=== PATIENT | female | born 1950 | race Caucasian/White ===

== ENCOUNTER 2016-10-31 18:10 | Inpatient (IN) | payer MEDICARE, OTHER ==
[~2016-10-31] VITALS: Ht 160 cm; Wt 85.4 kg
[~2016-10-31 18:10] MED LIST: FERR-89 PO; HYDR-3971 PO; HYDR-4031 PO; HYDR25TA PO; INSLAN SQ; INSREG SQ; METF500T PO; OXYC20 PO; PANT40TA25 PO
[2016-10-31] MEDS ORDERED: LORA0.5T2 PO (19:02)
[2016-10-31] MEDS ORDERED: SITA25 PO (19:02)
[2016-10-31] MEDS ORDERED: LORA10TA7 PO (19:02)
[2016-10-31] MEDS ORDERED: GLIP5 PO (19:02)
[2016-10-31 19:16] LABS: GLUCOSE,POINT OF CARE 243 MG/DL (70-110)
[2016-10-31 19:46] LABS: BASOPHILS # (AUTO) 0.01 K/uL (0.00-0.20); BASOPHILS % (AUTO) 0.4 % (0.0-2.0); EOSINOPHILS # (AUTO) 0.21 K/uL (0.00-0.70); EOSINOPHILS % (AUTO) 7.68 % (1.0-6.0); LYMPHOCYTES # (AUTO) 0.8 K/uL (1.0-4.8); LYMPHOCYTES % (AUTO) 31.3 % (22.0-44.0); MEAN CORPUSCULAR HEMOGLOBIN 20.7 pg (26.0-34.0); MEAN CORPUSCULAR HGB CONC 30.6 G/dL (31.0-37.0); MEAN CORPUSCULAR VOLUME 68 fL (80-100); MONOCYTES # (AUTO) 0.3 K/uL (0.1-1.0); MONOCYTES % (AUTO) 9.5 % (2.0-9.0); NEUTROPHILS # (AUTO) 1.4 K/uL (1.8-7.7); NEUTROPHILS % (AUTO) 51.1 % (40.0-70.0); RED BLOOD CELL COUNT(AUTO) 2.63 MIL/uL (4.00-5.20); RED CELL DISTRIBUTION WIDTH 20.6 % (11.5-14.5); WHITE BLOOD COUNT (AUTO) 2.7 K/uL (4.5-11.0)
[2016-10-31 19:54] LABS: ANION GAP 8 mmol/L (8-16); CALCIUM, TOTAL 8.3 mg/dL (8.8-10.5); CARBON DIOXIDE 26 mmol/L (22-29); CHLORIDE 106 mmol/L (98-107); CREATININE 0.88 mg/dL (0.60-1.30); GLOMERULAR FILTR. RATE CALC > 60 mL/min (>60); POTASSIUM 3.7 mmol/L (3.5-5.1); SODIUM SERUM 140 mmol/L (136-145); UREA NITROGEN, BLOOD 10 mg/dL (7-18)
[2016-10-31 19:58] LABS: ALANINE AMINOTRANSFERASE 36 U/L (12-78); ALBUMIN 3.2 g/dL (3.4-5.0); ASPARTATE AMINOTRANSFERASE 43 U/L (15-37); BILIRUBIN,TOTAL 0.4 mg/dL (0.1-1.0); TOTAL PROTEIN, SERUM 6.8 g/dL (6.4-8.2)
[2016-10-31 20:00] LABS: HEMATOCRIT 17.8 % (36-46); HEMOGLOBIN 5.4 g/dL (12.0-16.0)
[2016-10-31 20:06] LABS: PROTHROMBIN TIME 10.8 SEC (9.4-11.6)
[2016-10-31 20:33] LABS: PLATELET COUNT (AUTO) 94 K/uL (150-450)
[2016-10-31 20:34] LABS: RBC MORPHOLOGY COMMENT ABNORMAL RBC MORPH
[2016-10-31] MEDS ORDERED: 0.9% SODIUM CHLORIDE 10 ML SYRINGE IVP PRN (21:15)
[2016-10-31] MEDS ORDERED: ACETAMINOPHEN 325 MG TABLET PO PRN (21:15)
[2016-10-31] MEDS ORDERED: ONDANSETRON HCL 4 MG/2 ML VIAL IVP PRN (21:15)
[2016-10-31] MEDS ORDERED: PANTOPRAZOLE SODIUM 40 MG/VIAL IVP ONE (21:15)
[2016-10-31 21:27] LABS: APPEARANCE,URINE CLEAR (CLEAR); GLUCOSE, URINE (UA) 500 mg/dL (NEGATIVE); KETONES,URINE NEGATIVE (NEGATIVE); LEUKOCYTE ESTERASE ,URINE TRACE (NEGATIVE); OCCULT BLOOD,URINE MODERATE (NEGATIVE); PH,URINE 6.5 (5.0-8.0); PROTEIN,URINE NEGATIVE (NEGATIVE)
[2016-10-31 21:33] LABS: ADD UA MICROSCOPIC YES
[2016-10-31] MEDS ORDERED: HYDROmorphone 2 MG/ML SYRINGE IVP ONE (21:45)
[2016-10-31] MEDS ORDERED: SODIUM CHLORIDE 0.9% 1,000 ML IV ONE (21:45)
[2016-10-31] MEDS ORDERED: POTASSIUM CHL 20 MEQ/0.45% NS 1,000 ML IV ONE (23:30)
[2016-11-01] VITALS (33 sets, daily range): BP systolic 93–157; BP diastolic 41–89
[2016-11-01] MEDS ORDERED: PROPOFOL 1% 20 ML VIAL IVP ONE (00:27)
[2016-11-01] MEDS ORDERED: LIDOCAINE HCL/PF 2% 5 ML SYRINGE IVP ONE (00:27)
[2016-11-01] MEDS ORDERED: SODIUM CHLORIDE 0.9% 250 ML IV ONE ×3 (00:52→15:19)
[2016-11-01] MEDS ORDERED: LACTULOSE 20 GM/30 ML SOLUTION UDCUP PO PRN (01:15)
[2016-11-01] MEDS ORDERED: DEXTROSE 50%-WATER 25 GM/50 ML SYRINGE IVP PRN (01:15)
[2016-11-01] MEDS ORDERED: FUROSEMIDE 20 MG/2 ML VIAL IVP PRN (01:15)
[2016-11-01] MEDS: MORPHINE SULFATE 4 MG/ML SYRINGE IVP PRN ×3 (04:28→20:26)
[2016-11-01] MEDS ORDERED: PNEUMOCOCCAL VACCINE POLYVALENT 0.5 ML VIAL [PPSV23] IM ONE (05:30)
[2016-11-01 06:54] LABS: BASOPHILS # (AUTO) 0.01 K/uL (0.00-0.20); BASOPHILS % (AUTO) 0.4 % (0.0-2.0); EOSINOPHILS # (AUTO) 0.21 K/uL (0.00-0.70); EOSINOPHILS % (AUTO) 7.27 % (1.0-6.0); HEMATOCRIT 21.4 % (36-46); LYMPHOCYTES # (AUTO) 0.9 K/uL (1.0-4.8); LYMPHOCYTES % (AUTO) 31.9 % (22.0-44.0); MEAN CORPUSCULAR HEMOGLOBIN 21.7 pg (26.0-34.0); MEAN CORPUSCULAR HGB CONC 30.3 G/dL (31.0-37.0); MEAN CORPUSCULAR VOLUME 72 fL (80-100); MONOCYTES # (AUTO) 0.3 K/uL (0.1-1.0); MONOCYTES % (AUTO) 8.5 % (2.0-9.0); NEUTROPHILS # (AUTO) 1.5 K/uL (1.8-7.7); NEUTROPHILS % (AUTO) 51.9 % (40.0-70.0); PLATELET COUNT (AUTO) 99 K/uL (150-450); RED BLOOD CELL COUNT(AUTO) 2.98 MIL/uL (4.00-5.20); RED CELL DISTRIBUTION WIDTH 23.8 % (11.5-14.5); WHITE BLOOD COUNT (AUTO) 2.9 K/uL (4.5-11.0)
[2016-11-01 07:06] LABS: HEMOGLOBIN 6.5 g/dL (12.0-16.0)
[2016-11-01 07:11] LABS: ALANINE AMINOTRANSFERASE 34 U/L (12-78); ALBUMIN 3.1 g/dL (3.4-5.0); ANION GAP 8 mmol/L (8-16); ASPARTATE AMINOTRANSFERASE 40 U/L (15-37); BILIRUBIN,TOTAL 0.4 mg/dL (0.1-1.0); CALCIUM, TOTAL 7.9 mg/dL (8.8-10.5); CARBON DIOXIDE 25 mmol/L (22-29); CHLORIDE 106 mmol/L (98-107); CREATININE 0.78 mg/dL (0.60-1.30); GLOMERULAR FILTR. RATE CALC > 60 mL/min (>60); POTASSIUM 3.8 mmol/L (3.5-5.1); SODIUM SERUM 139 mmol/L (136-145); TOTAL PROTEIN, SERUM 6.5 g/dL (6.4-8.2); UREA NITROGEN, BLOOD 9 mg/dL (7-18)
[2016-11-01] MEDS: LORazepam 2 MG/ML VIAL IVP PRN ×2 (07:36→15:41)
[2016-11-01 09:52] LABS: RBC MORPHOLOGY COMMENT ABNORMAL RBC MORPH
[2016-11-01] MEDS ORDERED: SODIUM CHLORIDE 0.9% 1,000 ML IV ONE ×2 (09:57→10:00)
[2016-11-01] MEDS ORDERED: PEG 3350/NA SULF,BICARB,CL/KCL 4000 ML SOLUTION PO ONE (11:30)
[2016-11-01] MEDS: INSULIN ASPART 100 UNITS/ML SQ PRN ×2 (17:57→20:37)
[2016-11-01 22:56] LABS: HEMATOCRIT 30.3 % (36-46); HEMOGLOBIN 9.2 g/dL (12.0-16.0)
[2016-11-02] MEDS: MORPHINE SULFATE 4 MG/ML SYRINGE IVP PRN ×4 (01:26→23:58)
[2016-11-02 04:23] VITALS: BP 111/57
[2016-11-02 07:11] LABS: GLUCOSE,POINT OF CARE 158 MG/DL (70-110)
[2016-11-02 07:19] VITALS: BP 122/64
[2016-11-02] MEDS ORDERED: SODIUM CHLORIDE 0.9% 1,000 ML IV ONE ×2 (10:00→10:45)
[2016-11-02] MEDS ORDERED: MIDAZOLAM HCL 5 MG/ML VIAL ONE (10:20)
[2016-11-02] MEDS ORDERED: FentaNYL CITRATE-PF 100 MCG/2 ML VIAL ONE (10:20)
[2016-11-02 12:04] VITALS: BP 111/81
[2016-11-02] MEDS: INSULIN ASPART 100 UNITS/ML SQ PRN ×3 (12:40→21:12)
[2016-11-02 16:12] VITALS: BP 126/70
[2016-11-02 19:15] VITALS: BP 139/71
[2016-11-02 23:30] VITALS: BP 108/66
[2016-11-03 05:12] VITALS: BP 127/75
[2016-11-03] MEDS: INSULIN ASPART 100 UNITS/ML SQ PRN ×4 (05:55→20:52)
[2016-11-03] MEDS: MORPHINE SULFATE 4 MG/ML SYRINGE IVP PRN ×4 (05:59→22:21)
[2016-11-03 07:27] VITALS: BP 125/84
[2016-11-03 07:59] LABS: BASOPHILS # (AUTO) 0.01 K/uL (0.00-0.20); BASOPHILS % (AUTO) 0.4 % (0.0-2.0); EOSINOPHILS # (AUTO) 0.16 K/uL (0.00-0.70); EOSINOPHILS % (AUTO) 5.73 % (1.0-6.0); HEMATOCRIT 27.5 % (36-46); HEMOGLOBIN 8.6 g/dL (12.0-16.0); LYMPHOCYTES # (AUTO) 0.8 K/uL (1.0-4.8); LYMPHOCYTES % (AUTO) 26.4 % (22.0-44.0); MEAN CORPUSCULAR HEMOGLOBIN 23.4 pg (26.0-34.0); MEAN CORPUSCULAR HGB CONC 31.1 G/dL (31.0-37.0); MEAN CORPUSCULAR VOLUME 75 fL (80-100); MONOCYTES # (AUTO) 0.4 K/uL (0.1-1.0); MONOCYTES % (AUTO) 12.2 % (2.0-9.0); NEUTROPHILS # (AUTO) 1.6 K/uL (1.8-7.7); NEUTROPHILS % (AUTO) 55.3 % (40.0-70.0); PLATELET COUNT (AUTO) 80 K/uL (150-450); RED BLOOD CELL COUNT(AUTO) 3.65 MIL/uL (4.00-5.20); RED CELL DISTRIBUTION WIDTH 23.5 % (11.5-14.5); WHITE BLOOD COUNT (AUTO) 2.9 K/uL (4.5-11.0)
[2016-11-03 08:17] LABS: ANION GAP 5 mmol/L (8-16); CALCIUM, TOTAL 8.3 mg/dL (8.8-10.5); CARBON DIOXIDE 29 mmol/L (22-29); CHLORIDE 103 mmol/L (98-107); CREATININE 0.87 mg/dL (0.60-1.30); GLOMERULAR FILTR. RATE CALC > 60 mL/min (>60); POTASSIUM 4.4 mmol/L (3.5-5.1); SODIUM SERUM 137 mmol/L (136-145); UREA NITROGEN, BLOOD 6 mg/dL (7-18)
[2016-11-03 09:52] LABS: GLUCOSE COMMENT 1 Received Meds; GLUCOSE,POINT OF CARE 309 MG/DL (70-110)
[2016-11-03 11:01] VITALS: BP 127/68
[2016-11-03 11:17] LABS: HEPATITIS Bs ANTIGEN SCREEN P Negative (Negative); HEPATITIS C AB SCREEN <0.1 s/co ratio (0.0-0.9)
[2016-11-03 17:01] VITALS: BP 103/63
[2016-11-03 19:17] VITALS: BP 117/64
[2016-11-03 23:35] VITALS: BP 125/55
[2016-11-04 00:16] LABS: GLUCOSE,POINT OF CARE 254 MG/DL (70-110)
[2016-11-04 00:17] LABS: GLUCOSE COMMENT 1 Received Meds; GLUCOSE,POINT OF CARE 247 MG/DL (70-110)
[2016-11-04 04:09] VITALS: BP 113/57
[2016-11-04] MEDS: MORPHINE SULFATE 4 MG/ML SYRINGE IVP PRN ×3 (04:26→13:06)
[2016-11-04] MEDS: INSULIN ASPART 100 UNITS/ML SQ PRN ×2 (05:45→12:34)
[2016-11-04 08:08] VITALS: BP 108/50
[2016-11-04 11:37] VITALS: BP 138/73
[2016-11-04] MEDS ORDERED: PANT40TA25 PO (15:47)
[2016-11-05 13:37] LABS: GLUCOSE COMMENT 1 Received Meds; GLUCOSE,POINT OF CARE 232 MG/DL (70-110)
[2016-11-05 13:37] LABS: GLUCOSE COMMENT 1 Received Meds; GLUCOSE,POINT OF CARE 292 MG/DL (70-110)
[2016-11-05 13:37] LABS: GLUCOSE COMMENT 1 Received Meds; GLUCOSE,POINT OF CARE 197 MG/DL (70-110)
[2016-11-05 13:38] LABS: GLUCOSE COMMENT 1 Received Meds; GLUCOSE,POINT OF CARE 377 MG/DL (70-110)
[2016-11-05 13:38] LABS: GLUCOSE,POINT OF CARE 260 MG/DL (70-110)
[2016-11-05 13:38] LABS: GLUCOSE COMMENT 1 Received Meds; GLUCOSE,POINT OF CARE 227 MG/DL (70-110)
[2016-11-05 13:38] LABS: GLUCOSE,POINT OF CARE 325 MG/DL (70-110)
[2016-11-05 15:14] LABS: GLUCOSE COMMENT 1 Received Meds; GLUCOSE,POINT OF CARE 272 MG/DL (70-110)
== END 2016-11-04 16:10 | disposition home or self-care (01) | DRG 378 ==
LOC: EMS 18:11 → 5N 23:30 → 5S 11-04 04:56
PROVIDERS: ADMIT Internal Medicine; ATTEND Internal Medicine
PROC: 30233N1 Transfusion of Nonautologous Red Blood Cells into Peripheral Vein, Percutaneous Approach (ICD-10-PCS; 2016-11-01)
PROC: 0DB68ZX Excision of Stomach, Via Natural or Artificial Opening Endoscopic, Diagnostic (ICD-10-PCS; principal; 2016-11-01 11:00)
PROC: 0DJD8ZZ Inspection of Lower Intestinal Tract, Via Natural or Artificial Opening Endoscopic (ICD-10-PCS; 2016-11-02)
PROC: 3E0234Z Introduction of Serum, Toxoid and Vaccine into Muscle, Percutaneous Approach (ICD-10-PCS; 2016-11-02)
DX: K92.2 Gastrointestinal hemorrhage, unspecified (principal); K76.6 Portal hypertension; E11.9 Type 2 diabetes mellitus without complications; G89.4 Chronic pain syndrome; I10 Essential (primary) hypertension; K31.89 Other diseases of stomach and duodenum; M54.9 Dorsalgia, unspecified; D50.9 Iron deficiency anemia, unspecified; D69.6 Thrombocytopenia, unspecified; K31.9 Disease of stomach and duodenum, unspecified; K74.60 Unspecified cirrhosis of liver; R29.6 Repeated falls; F41.9 Anxiety disorder, unspecified; Z88.0 Allergy status to penicillin; Z98.1 Arthrodesis status; Z91.81 History of falling; Z79.899 Other long term (current) drug therapy; Z79.4 Long term (current) use of insulin; Z79.84 Long term (current) use of oral hypoglycemic drugs; Z87.891 Personal history of nicotine dependence; Z23 Encounter for immunization; Z83.3 Family history of diabetes mellitus
CPT/HCPCS: 76700; 80074; 82105; 82271; 82962; 85014; 85018; 86850; 86870; 86880; 86900; 86901; 86905; 86906; 86922; 86971; 88305; 88312; 88342; 90471; 93005; 96361; 96374; 96375; 99285; C9113; J1170; J2060; J2250; J2270; J2704; J3010; J3480; J3490; J7030; J7050; P9016